=== PATIENT | male | born 1955 | race Caucasian/White ===

== ENCOUNTER 2016-06-05 04:57 | Emergency (ER) | payer MEDICARE, OTHER ==
[2016-06-05 05:08] VITALS: BP 133/81
--- NOTE | 2016-06-05 05:26 | ERNOTE ---
Date of Service: 06/05/16 Time Seen by Provider: 06/05/16 05:21 Stated Complaint: SICK Immunizations: IMMUNIZATION HX Immunizations Up to Date Yes History of Influenza Vaccine Yes Hx Pneumococcal Vaccination Yes Allergies/Adverse Reactions: Allergies No Known Allergies Allergy (Verified 06/05/16 05:08) Home Medications: HOME MEDICATIONS Alendronate Sodium [Fosamax] 70 mg PO Q7D 08/30/15 [Last Taken Unknown] Atorvastatin Calcium 40 mg PO HS 08/30/15 [Last Taken Unknown] Calcium Carbonate [Calcium] 1,200 mg PO DAILY 08/30/15 [Last Taken Unknown] Cholecalciferol (Vitamin D3) [Vitamin D3] 2,000 unit PO DAILY 08/30/15 [Last Taken Unknown] DULoxetine HCL [Cymbalta] 30 mg PO DAILY 08/30/15 [Last Taken Unknown] Naproxen [Naprosyn] 500 mg PO BID #60 tab 08/30/15 [Last Taken Unknown] Testosterone gm TD DAILY 08/30/15 [Last Taken Unknown] busPIRone HCL [Buspar] 10 mg PO BID 08/30/15 [Last Taken Unknown] traZODone HCL [Desyrel] 50 mg PO HS PRN 08/30/15 [Last Taken 06/04/16 22:00] Meclizine HCl [Antivert] 25 mg PO TID PRN #20 tablet 02/16/16 [Last Taken Unknown] Guaifenesin/Codeine Phosphate [Codeine-Guaifen 10-100 mg/5 ml] 120 ml PO HS PRN #1 liquid 06/05/16 [Last Taken Unknown] Nicotine [Nicotine Patch] 1 each TD DAILY 06/05/16 [Last Taken Unknown] - History of Present Ilness Narrative: here for cough and inability to sleep due to cough. Cough has been there for two days. He does smoke. no fevers or chills. Cough is mostly dry but recently he's been "coughing stuff up" Review of Systems - Review of Systems Constitutional: Present: no symptoms reported EYE: Present: no symptoms reported ENT: Present: no symptoms reported Respiratory: Present: See HPI, other - some shortness of breath Cardiology: Present: no symptoms reported Gastrointestinal/Abdominal: Present: no symptoms reported Genitourinary: Present: no symptoms reported Musculoskeletal: Present: no symptoms reported Skin: Present: no symptoms reported - Patient's Past Medical History Patient History - Medical: Diabetes Type 2, Other Patient History - Cardiac/Respiratory: No pertinent hx Patient History - Cancer: No Hx of Cancer Patient History - Surgical Procedures: No surgical history, Other Patient History - Other: None - Family History Mother Family History - Medical: Father Family History - Medical: - Social History Living Situations: home Abuse History: No History of abuse Psych History: No pertinent hx Smoking Status: Current every day smoker Alcohol Use: none Drug Use: marijuana - Immunizations Immunizations Up to Date: Yes Hx Pneumococcal Vaccination: Yes History of Influenza Vaccine: Yes Physical Exam - Physical Exam General Appearance: Present: wd/wn, alert, no apparent distress Eye Exam: Normal inspection: bilateral, PERRL: bilateral, EOMI: bilateral Neck: Present: normal inspection, nontender Respiratory: Present: no respiratory distress, normal breath sounds, no accessory muscle use, chest nontender, lungs clear Cardiovascular/Chest: Present: regular rate, rhythm, no murmur, normal peripheral pulses ED Progress - Vital Signs Patient's Vital Signs:: I have reviewed the patient's vital signs. Vital Signs: Vital Signs 06/05/16 05:01 Temperature 36.7 C Pulse Rate 79 Respiratory 18 Rate Blood Pressure 133/81 O2 Sat by Pulse 98 Oximetry - Progress/Reassessment Chief Complaint: Cough Plan - Plan Plan: pt is in no resp distress, lungs are clear, I believe his cough may be of viral etiology Departure - Departure Clinical Impression: Cough Disposition: Home self-care Instructions: Viral Respiratory Infection, [id number] Prescriptions: Guaifenesin/Codeine Phosphate [Codeine-Guaifen 10-100 mg/5 ml] 120 ml PO HS PRN #1 liquid PRN Reason: Cough
--- OUTSIDE RECORDS SUMMARY | 2016-06-05 05:33 | XMS REPORT | Continuity of Care Document ---
:1955 Author Organization [facility] ([facility]) Address [place] [address] Phone [phone] Care Team Providers Name Role Phone Unavailable Primary Care Provider Unavailable Source Comments This disclosure is being made pursuant to the Care Everywhere program, applicable federal and state laws, and may not contain all informaitonavailable regarding this patient.[facility] ([facility]) Active Allergies and Adverse Reactions No Known Allergies Current Medications Prescription Sig. Disp. Refills Start Date End Date Status oxyCODONE-acetaminophen take 1-2 Tabs by 50 Tab 0 04/21/2009 Active (PERCOCET) 5-325 mg per mouth every 6 tablet hours as needed for Pain. 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
[2016-06-05] MEDS ORDERED: ALBUTEROL SULFATE 200 PUFF INHALER IH ONE (05:42)
[2016-06-05] MEDS ORDERED: ALBUTEROL SULFATE 200 PUFF INHALER IH SCH (05:45)
== END 2016-06-05 05:50 | disposition home or self-care (01) ==
LOC: ER 04:57
DX: R05 Cough (principal); F17.210 Nicotine dependence, cigarettes, uncomplicated

== ENCOUNTER 2016-08-11 13:26 | Emergency (ER) | payer MEDICARE, OTHER ==
--- OUTSIDE RECORDS SUMMARY | 2016-08-11 15:07 | XMS REPORT | Continuity of Care Document ---
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
--- NOTE | 2016-08-11 15:48 | ERNOTE ---
Back Pain ER HPI Date of Service: 08/11/16 Presenting Symptoms: hx chronic back pain Time Seen by Provider: 08/11/16 14:59 Source: patient Exam Limitations: no limitations Immunizations: IMMUNIZATION HX Immunizations Up to Date Yes History of Influenza Vaccine Yes Hx Pneumococcal Vaccination Yes Allergies/Adverse Reactions: Allergies No Known Allergies Allergy (Verified 08/11/16 13:50) Home Medications: HOME MEDICATIONS Alendronate Sodium [Fosamax] 70 mg PO Q7D 08/30/15 [Last Taken Unknown] Atorvastatin Calcium 40 mg PO HS 08/30/15 [Last Taken Unknown] Calcium Carbonate [Calcium] 1,200 mg PO DAILY 08/30/15 [Last Taken Unknown] Cholecalciferol (Vitamin D3) [Vitamin D3] 2,000 unit PO DAILY 08/30/15 [Last Taken Unknown] DULoxetine HCL [Cymbalta] 30 mg PO DAILY 08/30/15 [Last Taken Unknown] Naproxen [Naprosyn] 500 mg PO BID #60 tab 08/30/15 [Last Taken Unknown] Testosterone gm TD DAILY 08/30/15 [Last Taken Unknown] busPIRone HCL [Buspar] 10 mg PO BID 08/30/15 [Last Taken Unknown] traZODone HCL [Desyrel] 50 mg PO HS PRN 08/30/15 [Last Taken 06/04/16 22:00] Meclizine HCl [Antivert] 25 mg PO TID PRN #20 tablet 02/16/16 [Last Taken Unknown] Codeine Phosphate/Guaifenesin [Codeine-Guaifen 10-100 mg/5 ml] 120 ml PO HS PRN #1 liquid 06/05/16 [Last Taken Unknown] Nicotine [Nicotine Patch] 1 each TD DAILY 06/05/16 [Last Taken Unknown] traMADol HCL [Ultram] 50 mg PO BID #30 tablet 08/11/16 [Last Taken Unknown] Narrative: patient woke up today with c/o of low back pain, history of shingles in area, reports no injury Timing: Reports: constant, getting worse Quality/Severity: Reports: moderate, dullness Activities at Onset: Reports: none Recent Injury?: Reports: no Modifying Factors - (Improves): Reports: nothing Modifying Factors - (Worsens): Reports: nothing Associated Symptoms: Reports: none Review of Systems - Review of Systems Constitutional: Present: no symptoms reported EYE: Present: no symptoms reported ENT: Present: no symptoms reported Respiratory: Present: no symptoms reported Cardiology: Present: no symptoms reported Gastrointestinal/Abdominal: Present: no symptoms reported Genitourinary: Present: no symptoms reported Musculoskeletal: Present: back pain, muscle stiffness Skin: Present: no symptoms reported Neurological: Present: no symptoms reported Endocrine: Present: no symptoms reported Hematologic/Lymphatic: Present: no symptoms reported Psych: Present: no symptoms reported - Patient's Past Medical History Patient History - Medical: Diabetes Type 2, Other Patient History - Cardiac/Respiratory: No pertinent hx, CPAP/BiPAP Home Use Patient History - Cancer: No Hx of Cancer Patient History - Surgical Procedures: No surgical history, Other Patient History - Other: None - Family History Family History:: no untoward family reactions to anesthesia, no familial bleeding tendencies - Family History Mother Family History - Medical: Family History - Cardiac/Respiratory: No pertinent hx Family History - Cancer: No pertinent family hx Father Family History - Medical: Family History - Cardiac/Respiratory: No pertinent hx Family History - Cancer: No pertinent family hx - Social History Living Situations: home Abuse History: No History of abuse Psych History: No pertinent hx Does anyone smoke in the home?: No Smoking Status: Current every day smoker Alcohol Use: none Drug Use: marijuana - Immunizations Immunizations Up to Date: Yes Hx Pneumococcal Vaccination: Yes History of Influenza Vaccine: Yes Physical Exam - Physical Exam General Appearance: Present: mild distress Eye Exam: Normal inspection: bilateral, PERRL: bilateral, EOMI: bilateral Ears, Nose, Throat: Present: normal ENT inspection Neck: Present: normal inspection, nontender Respiratory: Present: no respiratory distress, normal breath sounds, no accessory muscle use, chest nontender, lungs clear Cardiovascular/Chest: Present: regular rate, rhythm, no murmur, normal peripheral pulses Peripheral Pulses: N=norm/S=strong/W=weak/B=bound/A=absent: Carotid (R): Normal , Carotid (L): Normal, Radial (R): Normal, Radial (L): Normal, Femoral (R): Normal, Femoral (L): Normal, Dorsalis-pedis (R): Normal, Dorsalis-pedis (L): Normal Gastrointestinal/Abdominal: Present: normal bowel sounds, nontender, nondistended, soft, no organomegaly Rectal Exam: Present: nontender, normal rectal tone Male Genitals Exam: Present: normal genitalia, normal prostate, no hernia Back Exam: Present: vertebral tenderness, decreased range of motion Extremity Exam: Present: normal inspection, non-tender, normal range of motion, no edema Neurological Exam: Present: alert, oriented, normal mood/affect, no motor/ sensory deficits Skin Exam: Present: normal color, warm/dry Lymphatic Exam: Present: no adenopathy ED Progress - Vital Signs Vital Signs: Vital Signs 08/11/16 13:44 Temperature 36.3 C L Pulse Rate 91 Respiratory 20 Rate Blood Pressure 127/82 O2 Sat by Pulse 95 Oximetry - X-Ray X-Ray #1 X-Ray: lumbosacral - Progress/Reassessment Chief Complaint: Back Pain Progress:: Unchanged - Transfer of Care Expected Disposition: Discharge Departure Clinical Impression: Low back pain - Departure Condition: Fair Instructions: Back Pain, Adult Prescriptions: traMADol HCL [Ultram] 50 mg PO BID #30 tablet
[2016-08-11 16:14] VITALS: BP 145/90
== END 2016-08-11 15:58 | disposition home or self-care (01) ==
LOC: ER 13:26
DX: M54.5 Low back pain (principal)

== ENCOUNTER 2017-05-05 16:21 | Emergency (ER) | payer MEDICARE, OTHER ==
[2017-05-05] MEDS ORDERED: NORMAL SALINE 1,000 ML IV ONE (16:32)
--- NOTE | 2017-05-05 16:41 | ERNOTE ---
Medical Problem HPI - General Chief Complaint: General Assessment Time Seen by Provider: 05/05/17 16:22 Source: patient Exam Limitations: no limitations - Immun/Allergies/Home Medications Immunizations: IMMUNIZATION HX Immunizations Up to Date Yes History of Influenza Vaccine Yes Hx Pneumococcal Vaccination Yes Allergies/Adverse Reactions: Allergies No Known Allergies Allergy (Verified 05/05/17 16:33) Home Medications: HOME MEDICATIONS Alendronate Sodium [Fosamax] 70 mg PO Q7D 08/30/15 [Last Taken Unknown] Atorvastatin Calcium 40 mg PO HS 08/30/15 [Last Taken Unknown] Calcium Carbonate [Calcium] 1,200 mg PO DAILY 08/30/15 [Last Taken Unknown] Cholecalciferol (Vitamin D3) [Vitamin D3] 2,000 unit PO DAILY 08/30/15 [Last Taken Unknown] DULoxetine HCL [Cymbalta] 30 mg PO DAILY 08/30/15 [Last Taken Unknown] Naproxen [Naprosyn] 500 mg PO BID #60 tab 08/30/15 [Last Taken Unknown] Testosterone gm TD DAILY 08/30/15 [Last Taken Unknown] busPIRone HCL [Buspar] 10 mg PO BID 08/30/15 [Last Taken Unknown] traZODone HCL [Desyrel] 50 mg PO HS PRN 08/30/15 [Last Taken 06/04/16 22:00] Meclizine HCl [Antivert] 25 mg PO TID PRN #20 tablet 02/16/16 [Last Taken Unknown] Codeine Phosphate/Guaifenesin [Codeine-Guaifen 10-100 mg/5 ml] 120 ml PO HS PRN #1 liquid 06/05/16 [Last Taken Unknown] Nicotine [Nicotine Patch] 1 each TD DAILY 06/05/16 [Last Taken Unknown] traMADol HCL [Ultram] 50 mg PO BID #30 tablet 08/11/16 [Last Taken Unknown] Oseltamivir Phosphate [Tamiflu] 75 mg PO BID #10 cap 05/05/17 [Last Taken Unknown] - History of Present History Narrative: Patient comes in because he feels like he is having flulike symptoms and he feels somewhat weak and washed out. He states the symptoms started ox me 2 hours ago and he denies any nausea vomiting or diarrhea. He also denies any chest pain shortness of breath or diaphoresis, although he does admit to having cough. Timing: constant Severity: mild Review of Systems - Review of Systems Constitutional: Present: See HPI EYE: Present: no symptoms reported ENT: Present: no symptoms reported Respiratory: Present: cough Cardiology: Present: no symptoms reported Gastrointestinal/Abdominal: Present: no symptoms reported Genitourinary: Present: no symptoms reported Musculoskeletal: Present: no symptoms reported Skin: Present: no symptoms reported Neurological: Present: no symptoms reported Endocrine: Present: no symptoms reported Hematologic/Lymphatic: Present: no symptoms reported Psych: Present: no symptoms reported - Patient's Past Medical History Patient History - Medical: Diabetes Type 2, Other Patient History - Cardiac/Respiratory: CPAP/BiPAP Home Use Patient History - Cancer: No Hx of Cancer Patient History - Surgical Procedures: Orthopedic Patient History - Other: None - Family History Mother Family History - Medical: Family History - Cardiac/Respiratory: No pertinent hx Family History - Cancer: No pertinent family hx Father Family History - Medical: Family History - Cardiac/Respiratory: No pertinent hx Family History - Cancer: No pertinent family hx - Social History Living Situations: home Abuse History: No History of abuse Psych History: No pertinent hx Smoking Status: Current every day smoker Alcohol Use: none Drug Use: none - Immunizations Immunizations Up to Date: Yes Hx Pneumococcal Vaccination: Yes History of Influenza Vaccine: Yes Physical Exam - Physical Exam General Appearance: Present: wd/wn, alert, no apparent distress Head Exam: Present: normal inspection, no evidence of injury Eye Exam: Normal inspection: bilateral, PERRL: bilateral Ears, Nose, Throat: Present: normal ENT inspection, H, normal pharynx Neck: Present: normal inspection, nontender Respiratory: Present: no respiratory distress, normal breath sounds, no accessory muscle use, chest nontender, lungs clear Cardiovascular/Chest: Present: regular rate, rhythm, no murmur, normal peripheral pulses Gastrointestinal/Abdominal: Present: normal bowel sounds, nontender, nondistended, soft, no organomegaly Rectal Exam: Present: deferred Back Exam: Present: normal inspection, normal range of motion Extremity Exam: Present: normal inspection, non-tender, no edema, normal range of motion Neurological Exam: Present: alert, oriented, normal mood/affect Skin Exam: Present: normal color, warm/dry Lymphatic Exam: Present: no adenopathy ED Progress - Results and Orders Patient's Lab Results:: I have reviewed the patient's lab results. - Vital Signs Patient's Vital Signs:: I have reviewed the patient's vital signs. Vital Signs: Vital Signs 05/05/17 16:23 Temperature 36.9 C Pulse Rate 80 Respiratory 16 Rate Blood Pressure 110/76 O2 Sat by Pulse 94 Oximetry - X-Ray X-Ray #1 X-Ray: chest Interpretation: Reviewed by me - Progress/Reassessment Chief Complaint: General Assessment Plan - Plan Plan: Patient has influenza B and was given his first dose of Tamiflu in the emergency department and will be given a prescription for 5 days. Patient agrees to call the [facility] in [place] on Monday to keep them apprised. Departure Clinical Impression: Influenza B - Departure Disposition: Home self-care Condition: Good Instructions: Influenza, Adult, [id number] Additional Instructions: Call the [facility] clinic for further directions Prescriptions: Oseltamivir Phosphate [Tamiflu] 75 mg PO BID #10 cap
[2017-05-05 16:49] LABS: Hematocrit 46.5 % (42.0-52.0); Hemoglobin 15.2 gm/dL (13.5-18.0); Mean Cell Volume 90.5 fl (78-100); Mean Corpuscular Hemoglobin 29.6 pg (27-31); Mean Corpuscular Hgb Conc 32.7 g/dl (32-36); Neutrophil # 1.6 K/mm3 (1.3-6.0); Neutrophil % 42.7 % (42-75.0); Platelet Count 171 K/mm3 (150-450); Red Blood Count 5.14 M/mm3 (4.7-6.0); Red Cell Distribution Width 12.1 % (11.5-14.0); White Blood Count 3.7 K/mm3 (4.0-10.5)
[2017-05-05 17:02] LABS: ALT 38 U/L (19-67); AST 40 U/L (0-48); Albumin * 3.3 gm/dl (3.4-5.0); Alkaline Phosphatase * 79 U/L (50-170); Anion Gap 9.5 mmol/L (6.8-13.8); BUN/Creatinine Ratio 10.1 (9.0-21.6); Bilirubin, Total 0.3 mg/dL (0.0-1.1); Blood Urea Nitrogen 17 mg/dL (6-23); Ca. Corrected For Albumin 8.9 mg/dL (8.4-10.2); Calcium * 8.7 mg/dL (7.9-10.9); Carbon Dioxide 30.7 mmol/L (24-32.6); Chloride 100 mmol/L (97-106); Glucose * 93 mg/dL (70-110); Magnesium 1.8 mg/dL (1.2-2.8); Potassium 4.2 mmol/L (3.4-4.6); Sodium 136 mmol/L (132-142); Total Protein 6.9 gm/dL (6.2-8.2)
[2017-05-05] MEDS ORDERED: OSELTAMIVIR PHOSPHATE 75 MG CAPSULE PO ONE ×2 (17:28→17:39)
[2017-05-05 17:45] VITALS: BP 110/65
== END 2017-05-05 17:55 | disposition home or self-care (01) ==
LOC: ER 16:21
DX: E11.9 Type 2 diabetes mellitus without complications; F17.210 Nicotine dependence, cigarettes, uncomplicated; J10.1 Influenza due to other identified influenza virus with other respiratory manifestations